=== PATIENT | male | born 2000 | race Caucasian/White ===

== ENCOUNTER 2023-01-10 12:54 | Emergency (ER) | payer BC, OTHER, SELFPAY ==
[2023-01-10 13:02] VITALS: BP 126/77; PULSE 98; RESP 16; TEMP 36.9; O2SAT 97; BMI 35.3
--- NOTE | 2023-01-10 13:12 | ED.URI1 ---
HPI - URI/Sore Throat General Chief Complaint: Upper Respiratory Infection Stated Complaint: SORE THROAT Time Seen by Provider: 01/10/23 13:07 Source: patient and family Limitations: no limitations History of Present Illness HPI Narrative: 22-year-old male presents for a three-week history of cough and congestion and sore throat. He is mostly worried about strep throat. He isn't coughing up some green phlegm. No vomiting or known fever. His kids have been ill. Related Data Previous Rx's Medication Instructions Recorded azithromycin 250 mg tablet See Rx Instructions PO .COMPLEX #6 01/10/23 (Zithromax Z-Anselmo) tabs benzonatate 100 mg capsule 100 mg PO TID PRN cough #20 caps 01/10/23 Allergies Allergy/AdvReac Type Severity Reaction Status Date / Time No Known Drug Allergies Allergy Verified 01/10/23 13:04 Review of Systems ROS Narrative A ten point review of systems is negative except as noted above. PFSH PFSH Social History Smoking status: Never smoker Exam Narrative Exam Narrative: Nurses note and vital signs reviewed and patient is not hypoxic. General: The patient appears well and in no apparent distress. Patient is resting comfortably on cart. Skin: Warm, dry, no pallor noted. There is no rash noted. Head: Normocephalic, atraumatic Eye: Normal conjunctiva, no drainage Ears, Nose, Mouth, and Throat: oral mucosa is moist. Nares patent. minimal pharyngeal erythema. There is no exudate. He is handling his oral secretions well. Cardiovascular: Regular Rate and Rhythm Respiratory: Patient is in no distress, no accessory muscle use, lungs are clear to auscultation, no wheezing, rales or rhonchi Back: non-tender GI: soft and nontender Musculoskeletal: The patient has no evidence of calf tenderness, no pitting edema, symmetrical pulses noted bilaterally Neurological: A&O, normal speech Psychiatric: Cooperative Constitutional Vital Signs, click to edit/add: Last Vital Signs Temp 98.4 F 01/10/23 13:02 Pulse 98 H 01/10/23 13:02 Resp 16 01/10/23 13:02 BP 126/77 01/10/23 13:02 Pulse Ox 97 01/10/23 13:02 O2 Del Method Room Air 01/10/23 13:02 Course Vital Signs Vital signs: Vital Signs Temperature 98.4 F 12/04/23 13:02 Pulse Rate 98 H 01/10/23 13:02 Respiratory Rate 16 01/10/23 13:02 Blood Pressure 126/77 01/10/23 13:02 Pulse Oximetry 97 01/10/23 13:02 Oxygen Delivery Method Room Air 01/10/23 13:02 Temperature 98.4 F 01/10/23 13:02 Pulse Rate 98 H 01/10/23 13:02 Respiratory Rate 16 01/10/23 13:02 Blood Pressure 126/77 01/10/23 13:02 Pulse Oximetry 97 01/10/23 13:02 Oxygen Delivery Method Room Air 01/10/23 13:02 MDM - URI/Sore Throat MDM Narrative Medical decision making narrative: strep test is negative. He was offered a Covid test but doesn't feel that he needs one. He'll be prescribed Zithromax and Tessalon. Treatment diagnosis and follow up are discussed with the patient. Differential Diagnosis Differential diagnosis: Likely upper respiratory infection and other (Covid, influenza, pneumonia) Lab Data Attestation: I reviewed the patient's lab results. Labs: Lab Results 01/10/23 01/10/23 Range/Units 13:00 13:11 Streptococcus Screen Negative POC Glucose 95 (74-106) mg/dL Discharge Plan Discharge Chief Complaint: Upper Respiratory Infection Clinical Impression: Upper respiratory infection Patient Disposition: Home, Self-Care Time of Disposition Decision: 13:33 Condition: Good Mode of Transportation: Private Vehicle Prescriptions / Home Meds: New azithromycin [Zithromax Z-Anselmo] 250 mg tablet See Rx Instructions .ROUTE .COMPLEX Qty: 6 0RF Rx Instructions: For 250 mg dose pack: take 500 mg today (day 1), then 250 mg for 4 days (days 2-5) benzonatate 100 mg capsule 100 mg PO TID PRN (Reason: cough) Qty: 20 0RF Instructions: Upper Respiratory Infection (ED) Stand Alone Forms: Portal Instructions Referrals: Physician,Non-Staff, MD [Primary Care Provider] - 1 week
[2023-01-10 13:14] LABS: Glucometer 95 mg/dL (74-106)
[2023-01-10 13:23] LABS: Internal Control Within Normal Limits; Strep A Antigen Screen Negative
== END 2023-01-10 13:43 | disposition home or self-care (01) ==
PROVIDERS: Emergency Provider Emergency Medicine
DX: J06.9 Acute upper respiratory infection, unspecified (principal)
CPT/HCPCS: 36415; 87070; 87804; 87811; 87880; 99283